=== PATIENT | female | born 1960 | race Two or more races ===

== ENCOUNTER 2017-03-04 08:33 | Emergency (ER) | payer OTHER ==
[~2017-03-04] VITALS: Ht 152.4 cm; Wt 55.3 kg
[2017-03-04] MEDS ORDERED: NAPROXEN 500 MG TABLET PO STA (09:22)
--- NOTE | 2017-03-04 10:02 | RAD ---
Three-view right ankle radiographs 03/04/2017 Clinical history: Pain on medial and lateral side of ankle particularly with weightbearing. Portable AP, lateral and oblique digital radiographs of the right ankle were obtained. The right ankle mortise is intact. No fracture or dislocation is seen. Soft tissue swelling is seen adjacent to the lateral malleolus of the right ankle. Mild degenerative changes are seen involving the left ankle joint. Impression: Mild degenerative changes are seen involving the left ankle joint. No acute osseous abnormality is seen.
[2017-03-04] MEDS ORDERED: TRAM-29 PO (10:28)
--- NOTE | 2017-03-04 10:28 | PHYS DOC ---
Past Medical History Past Medical History: No Pertinent History Past Surgical History: No Surgical History Alcohol Use: None Drug Use: None Adult General Chief Complaint Chief Complaint: FOOT INJURY PAIN HPI HPI Patient is a 56 year old female who presents with 9 out of 10 sharp medial and lateral right ankle pain that began yesterday evening. Patient denies any trauma. Patient states the pain is worse when she is ambulating. Review of Systems Review of Systems Constitutional: Denies fever or chills [] Musculoskeletal: Right ankle pain Integument: Denies rash or skin lesions [] Neurologic: Denies headache, focal weakness or sensory changes [] Endocrine: Denies polyuria or polydipsia [] Current Medications Current Medications Current Medications Medications (Trade) Dose Ordered Sig/Anand Start Time Stop Time Status Last Admin Dose Admin Naproxen (Naprosyn) 500 mg 1X STAT 03/04/17 09:22 03/04/17 09:23 DC 03/04/17 09:59 500 MG Allergies Allergies Allergies Coded Allergies Type Severity Reaction Last Updated Verified No Known Drug Allergies 03/04/17 No Physical Exam Physical Exam Constitutional: Well developed, well nourished, no acute distress, non-toxic appearance. [] HENT: Normocephalic, atraumatic, bilateral external ears normal, oropharynx moist, no oral exudates, nose normal. [] Skin: Warm, dry, no erythema, no rash. [] Back: No tenderness, no CVA tenderness. [] Extremities: Right ankle with no obvious edema and no adnexal ecchymosis. Tenderness on palpation of the right medial and lateral ankle. Negative Homans sign to the right lower extremity. Adequate flexion and extension of the right ankle. Adequate internal rotation and external rotation of the right ankle. +2 right pedal pulse. Cap refill less than 2 seconds the right lower extremity. Sensation intact to the right lower extremity. Neurologic: Alert and oriented X 3, normal motor function, normal sensory function, no focal deficits noted. [] Psychologic: Affect normal, judgement normal, mood normal. [] Current Patient Data Vital Signs Vital Signs Date Time Temp Pulse Resp B/P Pulse Ox O2 Delivery O2 Flow Rate FiO2 03/04/17 08:40 97.9 94 18 100 Room Air 97.9 EKG EKG [] Radiology/Procedures Radiology/Procedures []PROCEDURE: ANKLE RIGHT 3V Three-view right ankle radiographs 03/04/2017 Clinical history: Pain on medial and lateral side of ankle particularly with weightbearing. Portable AP, lateral and oblique digital radiographs of the right ankle were obtained. The right ankle mortise is intact. No fracture or dislocation is seen. Soft tissue swelling is seen adjacent to the lateral malleolus of the right ankle. Mild degenerative changes are seen involving the left ankle joint. Impression: Mild degenerative changes are seen involving the left ankle joint. No acute osseous abnormality is seen. DICTATED and SIGNED BY: KISHOR TUTTLE MD DATE: 03/04/17 0957 CC: FRANCOISE GUTHRIE APRN; NO PCP ~ Course & Med Decision Making Course & Med Decision Making Pertinent Labs and Imaging studies reviewed. (See chart for details) Patient is in the ED right ankle pain no known injury. Right ankle x-rays interpreted by radiologist are noted for DJD otherwise no acute findings. Air cast was applied to the right ankle, neurovascular exam is normal, cap refill less than 2 seconds.. Ice elevation encouraged. Discharged with instructions to follow-up with orthopedic doctor in one week. Discharged with Ultram for pain. Dragon Disclaimer Dragon Disclaimer This electronic medical record was generated, in whole or in part, using a voice recognition dictation system. Departure Departure Impression: Primary Impression: Degenerative joint disease of ankle, right Disposition: 01 HOME, SELF-CARE Condition: STABLE Referrals: NO PCP (PCP) LAURI ANN MD Follow-up with the provided orthopedic doctor in one week if pain continues Patient Instructions: Arthritis, Degenerative-Brief Additional Instructions: You were seen for right ankle pain. Your right ankle x-ray shows you have arthritis in the ankle. Wear the air cast provided as needed. Ice and elevate the extremities. Take the prescribed medicine as needed for pain. Follow-up with the provided orthopedic doctor in one week if pain continues. Scripts Tramadol Hcl (Ultram)50 Mg Tablet1 Tab PO Q6HRS #30 TAB Prov:FRANCOISE GUTHRIE APRN 03/04/17 Problem Qualifiers Primary Impression: Degenerative joint disease of ankle, right Osteoarthritis type: unspecified Qualified Code: M19.071 - Primary osteoarthritis, right ankle and foot FRANCOISE GUTHRIE APRN Mar 04, 2017 10:28
[2017-03-04 10:30] VITALS: BP 137/65
== END 2017-03-04 10:33 | disposition home or self-care (01) ==
LOC: ER 08:33
DX: M19.071 Primary osteoarthritis, right ankle and foot (principal)
CPT/HCPCS: 29515; 73610; 99284-25